=== PATIENT | female | born 1960 | race Caucasian/White ===

== ENCOUNTER 2017-02-18 15:41 | Outpatient (CLI) | payer OTHER ==
--- NOTE | 2017-02-18 16:37 | DIAGNOSTIC IMAGING REPORT ---
PROCEDURE: XR KNEE 4 VIEWS - LEFT INDICATION: STRAIN OF LEFT KNEE TECHNIQUE: Four views. COMPARISON: None. FINDINGS: There is osteoarthritis with medial compartment narrowing and osteophyte formation. There is no fracture or dislocation. IMPRESSION: 1. Osteoarthritis left knee.
== END 2017-02-18 23:00 ==
LOC: XR SRH 15:41
DX: M17.12 Unilateral primary osteoarthritis, left knee (principal)

== ENCOUNTER 2017-02-20 15:46 | Outpatient (CLI) | payer OTHER ==
--- NOTE | 2017-02-20 17:40 | DIAGNOSTIC IMAGING REPORT ---
PROCEDURE: MG BILATERAL SCREENING W/CAD INDICATION: Screening, family history of sister with breast cancer at age 20. TECHNIQUE: Standard CC and MLO views bilaterally. Computer aided detection was used. COMPARISON: 09/29/2013, 03/03/2008, 06/24/2006 FINDINGS: Mildly dense patchy fibroglandular tissue is present bilaterally. There is a vague density in the upper outer anterior right breast corresponding to the patient's large skin wound, marked with a BB. No developing densities, areas of architectural distortion, or suspicious microcalcifications. IMPRESSION: 1. Stable mammograms without radiographic evidence of malignancy. RESULT CODE: 2- Benign findings. A. A negative report should not delay biopsy if a dominant or clinically suspicious mass is present. 10-15% of cancers are not identified by x-ray. B. A negative report may reinforce clinical impression. C. Adenosis and dense breasts may obscure an underlying neoplasm. D. False positive reports average 6-10%. E.. A yearly screening mammogram is recommended. A reminder letter will be scheduled.
== END 2017-02-20 23:00 ==
LOC: MAM SRH 15:46
DX: Z12.31 Encounter for screening mammogram for malignant neoplasm of breast (principal); Z80.3 Family history of malignant neoplasm of breast